=== PATIENT | female | born 1995 | race Caucasian/White ===

== ENCOUNTER 2019-08-22 21:23 | Emergency (ER) | payer OTHER, SELFPAY ==
[2019-08-22 22:04] LABS: Urine Blood NEGATIVE (NEG); Urine Glucose TRACE (NEG); Urine Protein 1+ (NEG); Urine Specific Gravity 1.015 (1.005-1.030)
--- NOTE | 2019-08-22 22:06 | EDPHYS ---
Physician Documentation [facility] Name: Giles Sol Age: 24 yrs Sex: Female : 1995 Arrival Date: 08/22/2019 Time: 21:28 Bed 16 Private MD: None, None ED Physician Werner Kirkland HPI: 08/22 21:59 This 24 yrs old Female presents to ER via Ambulatory with complaints of jmm Possible bladder infection. 21:59 The patient presents with urinary symptoms. Onset: The symptoms/episode began/occurred jmm gradually, 1 week(s) ago. Modifying factors: The symptoms are alleviated by nothing, the symptoms are aggravated by nothing. Associated signs and symptoms: Pertinent positives: dysuria, Pertinent negatives: fever. This is a 24 year old female with no chronic medical conditions that presents to the ED with complaints of painful urination beginning 1 week ago. Denies fever, vomiting, shortness of breath. . MANAGER CONVENTION: 21:32 LMP N/A - control method ls4 Historical: - Allergies: 22:25 No Known Allergies; ls4 - Home Meds: 22:25 None [Active]; ls4 - PMHx: 22:25 None; ls4 - Immunization history:: Adult Immunizations up to date. - Social history:: Smoking status: Patient denies any tobacco usage or history of. - Ebola Screening: : No symptoms or risks identified at this time. ROS: 21:59 Constitutional: Negative for fever, chills, and weight loss, Cardiovascular: Negative jmm for chest pain, palpitations, and edema, Respiratory: Negative for shortness of breath, cough, wheezing, and pleuritic chest pain. 21:59 : Positive for urinary symptoms. 21:59 All other systems are negative. Exam: 21:59 Constitutional: This is a well developed, well nourished patient who is awake, alert, jmm and in no acute distress. Head/Face: atraumatic. Eyes: EOMI, no conjunctival erythema appreciated ENT: Moist Mucus Membranes Neck: Trachea midline, Supple Chest/axilla: Normal chest wall appearance and motion. Cardiovascular: Regular rate and rhythm. No edema appreciated Respiratory: Normal respirations, no respiratory distress appreciated Abdomen/GI: Non distended, soft Back: Normal ROM Skin: General appearance color normal 21:59 Musculoskeletal/extremity: ROM: intact in all extremities. 21:59 Skin: Appearance: Color: normal in color. 21:59 Neuro: Orientation: is normal, Mentation: is normal, Memory: is normal. 21:59 Psych: Behavior/mood is pleasant, cooperative. Vital Signs: 21:36 BP 111 / 68; Pulse 80; Resp 18; Temp 98.2(O); Pulse Ox 100% on R/A; Weight 69.44 kg dm5 (M); Height 5 ft. 3 in. (160.02 cm) (R); Pain 3/10; 21:36 Body Mass Index 27.12 (69.44 kg, 160.02 cm) dm5 MDM: 21:52 Patient medically screened. [facility] 21:59 Data reviewed: vital signs, nurses notes. Counseling: I had a detailed discussion with mina the patient and/or guardian regarding: the historical points, exam findings, and any diagnostic results supporting the discharge/admit diagnosis, lab results, the need for outpatient follow up, to return to the emergency department if symptoms worsen or persist or if there are any questions or concerns that arise at home. ED course: Patient is alert and non toxic in appearance in the ED. Patient given strict return precautions. Patient understood and agrees with the plan of care.. 08/22 21:57 Order name: Urine Microscopic Only; Complete Time: 22:14 [facility] 08/22 22:02 Order name: Urine Dipstick--Ancillary (enter results); Complete Time: 22:14 [facility] 08/22 21:44 Order name: Urine Dipstick-Ancillary (obtain specimen); Complete Time: 21:51 [facility] 08/22 21:44 Order name: Urine Test (obtain specimen); Complete Time: 21:51 [facility] 08/22 22:02 Order name: Urine --Ancillary (enter results); Complete Time: 22:14 [facility] 08/22 22:15 Order name: Urine Culture EDMS Administered Medications: No medications were administered Disposition: 08/23 10:05 Co-signature as Attending Physician, Werner Kirkland MD I agree with the assessment and yazan plan of care. Disposition: 08/22/19 22:05 Discharged to Home. Impression: Urinary tract infection, site not specified. - Condition is Stable. - Discharge Instructions: Urinary Tract Infection, Adult. - Prescriptions for Cephalexin 500 mg Oral Capsule - take 1 capsule by ORAL route every 12 hours for 10 days; 20 capsule. - Medication Reconciliation Form, Thank You Letter, Antibiotic Education, Prescription Opioid Use form. - Follow up: Private Physician; When: 2 - 3 days; Reason: Recheck today's complaints, Continuance of care, Re-evaluation by your physician. Signatures: Dispatcher [employer] EDWerner Lehman MD MD cha Mickail, Joel, PA PA jmm Stewart, Lisa RN RN ls4 Corrections: (The following items were deleted from the chart) 08/22 22:26 22:05 08/22/2019 22:05 Discharged to Home. Impression: Urinary tract infection, site ls4 not specified. Condition is Stable. Forms are Medication Reconciliation Form, Thank You Letter, Antibiotic Education, Prescription Opioid Use. Follow up: Private Physician; When: 2 - 3 days; Reason: Recheck today's complaints, Continuance of care, Re-evaluation by your physician. mina
--- NOTE | 2019-08-22 22:06 | ER ---
Nurse's Notes [facility] Name: Giles Sol Age: 24 yrs Sex: Female : 1995 Arrival Date: 08/22/2019 Time: 21:28 Bed 16 Private MD: None, None Diagnosis: Urinary tract infection, site not specified Presentation: 08/22 21:36 Presenting complaint: Patient states: cloudy, foul smelling urine x 1 week. pain in dm5 lower abd after urination rated at 6/10. Pain at this time rated at 3/10. Pt also reports urgency and frequency. Transition of care: patient was not received from another setting of care. Onset of symptoms was August 15, 2019. Risk Assessment: Do you want to hurt yourself or someone else? Patient reports no desire to harm self or others. Initial Sepsis Screen: Does the patient meet any 2 criteria? No. Patient's initial sepsis screen is negative. Does the patient have a suspected source of infection? Yes: Dysuria/Frequency/Urgency/UTI. Care prior to arrival: None. 21:36 Acuity: MARQUEZ 3 dm5 21:36 Method Of Arrival: Ambulatory dm5 Triage Assessment: 21:32 General: Appears in no apparent distress. comfortable, Behavior is calm, cooperative. ls4 21:32 Pain: Pain: Complains of pain in groin and suprapubic area Pain currently is 0 out of ls4 10 on a pain scale. at worst was 5 out of 10 on a pain scale. Is intermittent, Aggravated by urinating. Neuro: No deficits noted. Cardiovascular: No deficits noted. Respiratory: No deficits noted. SENIOR BENEFITS MANAGER: 21:32 LMP N/A - control method ls4 Historical: - Allergies: 22:25 No Known Allergies; ls4 - Home Meds: 22:25 None [Active]; ls4 - PMHx: 22:25 None; ls4 - Immunization history:: Adult Immunizations up to date. - Social history:: Smoking status: Patient denies any tobacco usage or history of. - Ebola Screening: : No symptoms or risks identified at this time. Screenin:24 Abuse screen: Denies threats or abuse. Denies injuries from another. Nutritional ls4 screening: No deficits noted. Tuberculosis screening: No symptoms or risk factors identified. Fall Risk None identified. Assessment: 22:26 General: see triage assessment.. ls4 Vital Signs: 21:36 BP 111 / 68; Pulse 80; Resp 18; Temp 98.2(O); Pulse Ox 100% on R/A; Weight 69.44 kg dm5 (M); Height 5 ft. 3 in. (160.02 cm) (R); Pain 3/10; 21:36 Body Mass Index 27.12 (69.44 kg, 160.02 cm) dm5 ED Course: 21:28 Patient arrived in ED. es 21:28 None, None is Private Physician. es 21:29 Alex Ndiaye PA is PHCP. jm 21:29 Werner Kirkland MD is Attending Physician. [facility] 21:32 Nadja Charles, RN is Primary Nurse. ls4 21:32 Urine obtained. Urine : negative. ls4 21:36 Arm band placed on right wrist. Patient placed in an exam room. dm5 21:37 Triage completed. dm5 22:24 Patient has correct armband on for positive identification. Bed in low position. Call ls4 light in reach. Side rails up X 1. 22:24 No provider procedures requiring assistance completed. Patient did not have IV access ls4 during this emergency room visit. Administered Medications: No medications were administered Outcome: 22:05 Discharge ordered by . [facility] 22:24 Discharged to home ambulatory. ls4 22:24 Condition: good 22:24 Discharge instructions given to patient, Instructed on discharge instructions, follow up and referral plans. Demonstrated understanding of instructions, follow-up care, medications, Prescriptions given X 1. 22:26 Patient left the ED. ls4 Addendum: 08/25/2019 16:30 Addendum: Culture Results: Positive urine culture. Phone call Attempt #1 phone call a a5 disconnected. Signatures: Macrina Williamson, RN RN dm5 Alex Ndiaye PA PA jmm Salyer, Edna es Calderon, Audri RN RN aa5 Nadja Charles RN RN ls4
[2019-08-22 22:13] LABS: Urine Bacteria 20-50 /HPF (<20); Urine RBC <5 /HPF (NONE SEEN)
[2019-08-22 22:14] LABS: Urine Mucus 1+ /HPF (NONE SEEN)
[2019-08-22 22:49] VITALS: O2SAT 100
[2019-08-22 22:53] VITALS: BP 135/90; TEMP 97.9
== END 2019-08-22 22:26 | disposition home or self-care (01) ==
LOC: ER 21:23
DX: N39.0 Urinary tract infection, site not specified (principal)
CPT/HCPCS: 81003; 81015; 81025; 87077; 87086; 87088; 87186; 99283